=== PATIENT | female | born 1980 | race American Indian/Alaskan Native ===

== ENCOUNTER 2018-06-15 07:13 | Day surgery (SDC) | payer BC ==
[2018-05-24 14:13] VITALS: BMI 28.3
[2018-05-31 11:09] VITALS: O2SAT 100
[2018-06-15] MEDS ORDERED: Lactated Ringer's 1,000 ML IV ONE ×2 (08:17→14:10)
[2018-06-15] MEDS ORDERED: Propofol 10 mg/ml Inj (20 ML) ONE (12:43)
[2018-06-15] MEDS ORDERED: Lidocaine 4% (Laryng-O-Jet) Kit MM ONE (12:43)
[2018-06-15] MEDS ORDERED: Succinylcholine Chloride 20 mg/ml Syr (5 ml) IV ONE (12:43)
[2018-06-15] MEDS ORDERED: Rocuronium 10 mg/ml (5 ml) ONE (12:43)
[2018-06-15] MEDS ORDERED: Dexamethasone 4 mg/1 ml ONE (12:47)
[2018-06-15] MEDS ORDERED: cefOXitin IV 1 gm in Dextrose 0 GM/0 ML BAG IVPB ONE (12:59)
[2018-06-15] MEDS ORDERED: Bupivacaine 0.5% Inj(30mL) ONE (12:59)
[2018-06-15] MEDS ORDERED: Midazolam 2 MG/2 ML VIAL ONE (13:31)
[2018-06-15] MEDS ORDERED: ePHEDrine 50 mg/ml Inj ONE (13:45)
[2018-06-15] MEDS ORDERED: Neostigmine 1:1000 (1 mg/ml) Inj ONE (14:28)
[2018-06-15] MEDS ORDERED: Sodium Chloride 0.9% 1,000 ML IV ONE (14:47)
[2018-06-15] MEDS ORDERED: HYDROmorphone 0.5 mg/0.5 ml ISec IVP PRN (14:51)
[2018-06-15] MEDS ORDERED: Lactated Ringer's 1,000 ML IV SCH (15:00)
[2018-06-15 15:40] VITALS: RESP 18
[2018-06-15 16:19] VITALS: TEMP 97.4
[2018-06-15 17:00] VITALS: BP 116/60; PULSE 64
--- NOTE | 2018-06-17 03:36 | OP ---
PROCEDURE DATE: 06/15/2018 PREOPERATIVE DIAGNOSIS: Multiparity. POSTOPERATIVE DIAGNOSES: Multiparity, fibroid uterus. SURGEON: Joselito Kim MD TYPE OF ANESTHESIA: General. ANESTHESIA ADMINISTERED BY: Keyur Rincon MD ESTIMATED BLOOD LOSS: Minimal. DESCRIPTION OF PROCEDURE: With the patient in the dorsal lithotomy position under general anesthesia, the patient was draped and prepped in the usual sterile manner. A weighted speculum was placed in the posterior vagina. Cervix was grasped anteriorly and dilated. Following this, HUMI uterine manipulator put into place. I then moved to the abdomen after removing the weighted speculum. The abdomen was tented. A Veress needle was introduced and inflated to about 4 L of CO2. After this was done, a small incision about 1 cm was made below the umbilicus, and a #10 trocar was used to enter the abdominal cavity. A sleeve was left into place, and the trocar was removed. The laparoscope with camera attached was then introduced into the abdominopelvic cavity visualizing the abdomen and pelvis with the uterus showing multiple fibroids. The tubes were visualized and both were fulgurated adequately bilaterally. Hemostasis maintained. After this was done, the instruments were removed from the vagina. The air was removed which was deflated. The incisions were closed with a 2-0 Vicryl and Dermabond. The patient tolerated the procedure well and was in satisfactory condition on her way to the recovery room. Joselito Almazan MD
== END 2018-06-15 18:00 | disposition home or self-care (01) ==
LOC: H.OPSURG 07:13
PROVIDERS: ATTEND Specialist
DX: D25.9 Leiomyoma of uterus, unspecified (principal); Z64.1 Problems related to multiparity; D50.9 Iron deficiency anemia, unspecified
CPT/HCPCS: 58558; J0131; J1100; J1170; J1885; J2001; J2250; J2405; J2704; J2710; J2765; J3010; J7030; J7120